=== PATIENT | male | born 1960 | race African-American/Black ===

== ENCOUNTER 2019-03-20 14:22 | Emergency (ER) | payer OTHER ==
--- NOTE | 2019-03-20 14:32 | PDOC ---
Rapid Medical Evaluation Time Seen by Provider: 03/20/19 14:25 Medical Evaluation: Allergies Allergy/AdvReac Type Severity Reaction Status Date / Time No Known Allergies Allergy Verified 08/10/13 09:23 03/20/19 14:26 Pt presents for evaluation for b/l mid back pain. 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 State that his back and chest hurt when he takes a deep breath. Denies fevers, chills, shortness of breath Exam: Lungs CTAB, NAD Orders: EKG Pt to proceed to the ER for further evaluation Discharge Disposition - Diagnosis Back pain - Discharge Dispostion Condition at time of disposition: Stable - Referrals - Patient Instructions - Post Discharge Activity
[2019-03-20 14:34] VITALS: BP 130/70; PULSE 80; TEMP 98.4; BMI 30.7
--- NOTE | 2019-03-20 14:43 | PDOC ---
History of Present Illness - General Chief Complaint: Back Pain Stated Complaint: BACK PAIN Time Seen by Provider: 03/20/19 14:25 History Source: Patient Exam Limitations: No Limitations - History of Present Illness Initial Comments: 03/20/19 14:45 Patient states at work last night was lifting some heavy pails, up this morning with tense tight musculature to his right upper back. Denies any breathing problems, palpitations or shortness of breath. Has no numbness and tingling to hands or feet, has taken no medications for relief of same. 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 Occurred: reports: yesterday Severity: reports: mild, moderate Pain Location: reports: chest Modifying Factors: improves with: None Loss of Consciousness: no loss of consciousness Associated Symptoms (Fall): denies symptoms Past History - Travel Traveled outside of the country in the last 30 days: No Close contact w/someone who was outside of country & ill: No - Past Medical History Allergies/Adverse Reactions: Allergies Allergy/AdvReac Type Severity Reaction Status Date / Time No Known Allergies Allergy Verified 08/10/13 09:23 Home Medications: Ambulatory Orders Atorvastatin Ca [Lipitor] 20 mg PO HS 04/14/13 Cyclobenzaprine HCl 10 mg PO Q8H PRN #14 tablet 03/20/19 Naproxen [Naprosyn -] 500 mg PO BID #30 tablet 03/20/19 COPD: No Hypercholesterolemia: Yes - Immunization History Td Vaccination: Yes Immunization Up to Date: Yes - Suicide/Smoking/Psychosocial Hx Smoking Status: No Smoking History: Former smoker Years of Tobacco Use: 0 Have you smoked in the past 12 months: No Number of Cigarettes Smoked Daily: 0 Cigars Per Day: 0 Information on smoking cessation initiated: No Hx Alcohol Use: No Drug/Substance Use Hx: No Review of Systems - Review of Systems Able to Perform ROS?: Yes Is the patient limited Omani proficient: Yes Constitutional: Yes: Symptoms Reported, See HPI HEENTM: Yes: See HPI. No: Symptoms Reported Respiratory: Yes: See HPI. No: Symptoms reported, Cough, Shortness of Breath ABD/GI: No: Symptoms Reported : No: Symptoms Reported Musculoskeletal: Yes: Symptoms Reported, See HPI, Back Pain, Muscle Pain Integumentary: Yes: See HPI. No: Symptoms Reported All Other Systems: Reviewed and Negative *Physical Exam - Vital Signs Last Vital Signs Temp Pulse Resp BP Pulse Ox 98.4 F 80 16 130/70 98 03/20/19 14:28 03/20/19 14:28 03/20/19 14:28 03/20/19 14:28 03/20/19 14:28 - Physical Exam General Appearance: Yes: Nourished, Appropriately Dressed, Apparent Distress, Mild Distress HEENT: positive: THADDEUS, Normal ENT Inspection, TMs Normal, Pharynx Normal Neck: positive: Supple. negative: Tender Respiratory/Chest: positive: Lungs Clear, Normal Breath Sounds Musculoskeletal: positive: Normal Inspection, Muscle Spasm (tender tight musculature of the upper trapezius right muscle groups. Has full range of motion to arm and shoulder without radiating pain. Has no true bone tenderness crepitus or step-offs). 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 NML intact, Fully Oriented, Alert, Normal Mood/ Affect, Normal Response, Motor Strength 5/5 Progress Note - Progress Note Progress Note: Back strain, will treat with NSAIDs and cyclobenzaprine *DC/Admit/Observation/Transfer Diagnosis at time of Disposition: Back pain Qualifiers: Back pain location: thoracic back pain Chronicity: acute Back pain laterality: right Qualified Code(s): M54.6 - Pain in thoracic spine - Discharge Dispostion Disposition: HOME Condition at time of disposition: Stable Decision to Admit order: No - Referrals - Patient Instructions Printed Discharge Instructions: DI for Back Strain or Sprain Additional Instructions: Rest, no heavy lifting or exercise until pain is resolved Hot soaks to neck and low back as often as possible/hot showers or Jacuzzis No massage or therapy until spasm is gone Continue Naprosyn 500 mg tablet, 1 tablet every 8 hours for the next 3 days then as needed for pain and swelling Cyclobenzaprine 1-10mg every 8 hours as needed for spasm If not significant improvement within 24 hours with medication and rest regime, followup with private physician for change in medications and /or therapy. - Post Discharge Activity Forms/Work/School Notes: Back to Work
== END 2019-03-20 14:55 | disposition home or self-care (01) ==
LOC: JERFT 14:22
DX: S29.012A Strain of muscle and tendon of back wall of thorax, initial encounter (principal); X50.0XXA Overexertion from strenuous movement or load, initial encounter; Y93.89 Activity, other specified; Y92.89 Other specified places as the place of occurrence of the external cause; Y99.8 Other external cause status
CPT/HCPCS: 99282-25

== ENCOUNTER 2019-04-02 19:38 | Emergency (ER) | payer OTHER ==
[2019-04-02 19:44] VITALS: BP 110/63; PULSE 89; TEMP 98.3; BMI 24.7
[2019-04-03 00:29] LABS: URINE APPEARANCE CLEAR; URINE BILIRUBIN NEGATIVE (NEGATIVE); URINE COLOR YELLOW; URINE GLUCOSE (UA) NEGATIVE (NEGATIVE); URINE KETONE TRACE (NEGATIVE); URINE LEUK ESTERASE NEGATIVE (NEGATIVE); URINE NITRITE NEGATIVE (NEGATIVE); URINE PROTEIN TRACE (NEGATIVE)
--- NOTE | 2019-04-03 01:36 | PDOC ---
History of Present Illness - General Chief Complaint: Pain Stated Complaint: GROIN PAIN Time Seen by Provider: 04/03/19 00:07 History Source: Patient Exam Limitations: No Limitations - History of Present Illness Initial Comments: 04/03/19 01:28 58M with a PMH of prostate CA s/p prostatectomy 14 years ago and penile implant who presents to the ER for testicular pain. The patient states that he's had 2- 3 days of an achy pain in his R testicle, nonradating, atraumatic, without discharge, dysuria, fever, chills, nausea, vomiting or abdominal pain. He denies any other symptoms. Past History - Past Medical History Allergies/Adverse Reactions: Allergies Allergy/AdvReac Type Severity Reaction Status Date / Time No Known Allergies Allergy Verified 04/02/19 19:44 Home Medications: Ambulatory Orders Atorvastatin Ca [Lipitor] 20 mg PO HS 04/14/13 Cyclobenzaprine HCl 10 mg PO Q8H PRN #14 tablet 03/20/19 Naproxen [Naprosyn -] 500 mg PO BID #30 tablet 03/20/19 levoFLOXacin [Levaquin -] 500 mg PO DAILY #10 tablet 04/03/19 Cancer: Yes (prostate) COPD: No Hypercholesterolemia: Yes - Immunization History Td Vaccination: Yes Immunization Up to Date: Yes - Suicide/Smoking/Psychosocial Hx Smoking Status: No Smoking History: Never smoked Years of Tobacco Use: 0 Have you smoked in the past 12 months: No Number of Cigarettes Smoked Daily: 0 Cigars Per Day: 0 Hx Alcohol Use: No Drug/Substance Use Hx: No Review of Systems - Review of Systems Able to Perform ROS?: Yes Comments:: 04/03/19 01:32 GENERAL/CONSTITUTIONAL: No fever or chills. No weakness. HEAD, EYES, EARS, NOSE AND THROAT: No change in vision. No ear pain or discharge. No sore throat. CARDIOVASCULAR: No chest pain, palpitations, or lightheadedness. RESPIRATORY: No cough, wheezing, shortness of breath, or hemoptysis. GASTROINTESTINAL: No abdominal pain, nausea, vomiting, diarrhea, or constipation. GENITOURINARY: + for R testicular pain. No dysuria, frequency, hematuria, or change in urination. MUSCULOSKELETAL: No joint or muscle swelling or pain. No neck or back pain. SKIN: No rash or lesions. NEUROLOGIC: No headache, numbness, tingling, focal weakness, loss of consciousness, or change in strength/sensation. Is the patient limited Pashto proficient: No *Physical Exam - Vital Signs Last Vital Signs Temp Pulse Resp BP Pulse Ox 98.3 F 89 18 110/63 99 04/02/19 19:41 04/02/19 19:41 04/02/19 19:41 04/02/19 19:41 04/02/19 19:41 - Physical Exam General Appearance: Yes: Nourished, Appropriately Dressed. No: Apparent Distress HEENT: positive: Normal Voice, Hearing Grossly Normal Male Genitalia: positive: normal genitalia, testicular tenderness (R testicle), epididymus tender. negative: discharge, testicular mass, CVAT, hematuria ED Treatment Course - ADDITIONAL ORDERS Additional order review: Laboratory Results 04/03/19 00:12 Urine Color Yellow Urine Appearance Clear Urine pH 6.0 Ur Specific Hugo 1.039 H Urine Protein Trace Urine Glucose (UA) Negative Urine Ketones Trace H Urine Blood Negative Urine Nitrite Negative Urine Bilirubin Negative Urine Urobilinogen 1.0 Ur Leukocyte Esterase Negative - RADIOLOGY Radiology Studies Ordered: Category Date Time Status SCROTUM AND CONTENTS US [US] Stat Ultrasound 04/03/19 00:12 Taken Medical Decision Making - Medical Decision Making 04/03/19 01:36 58M with a PMH of prostate ca s/p resection who presents to the ER with R testicular pain for 2-3 days. US shows: FINDINGS: Right testicle and epididymis are homogeneous in appearance. There is positive Doppler waveforms to the right testicle. Left testicle and epididymis are also homogeneous in appearance. There is positive Doppler waveforms to the left testicle. No hydroceles. No varicoceles On some of the color views the case can be made that the right testicle and epididymis are slightly hypervascular relative to the left. This could suggest right-sided infection but the differences are somewhat subtle and therefore not certain. UA negative. In light of US and R testicular tenderness, will treat for epididymitis and d/c with urology f/u. *DC/Admit/Observation/Transfer Diagnosis at time of Disposition: Testicle pain - Discharge Dispostion Disposition: HOME Condition at time of disposition: Stable Decision to Admit order: No - Prescriptions Prescriptions: levoFLOXacin [Levaquin -] 500 mg PO DAILY #10 tablet - Referrals Referrals: Yobani Encinas MD [Primary Care Provider] - Rigoberto Peter MD [Staff Physician] - - Patient Instructions Printed Discharge Instructions: DI for Testicular Pain Additional Instructions: Your ER visit is not complete until your follow up with your primary care physician and urologist (Dr. Peter). Please follow up with your primary care physician and urologist in 1-2 days. Please return to the ER if you have any signs or symptoms of chest pain, shortness of breath, uncontrollable fever, chills, nausea, vomiting, numbness, tingling, or weakness in any part of your body, changes in vision, or slurred speech. Please take your medications as prescribed. Please return to the ER if symptoms persist, worsen, or new symptoms arise. - Post Discharge Activity
--- NOTE | 2019-04-03 01:41 | PDOC ---
Documentation entered by Martha Gtz SCRIBE, acting as scribe for Maricarmen Melvin MD. Maricarmen Melvin MD: This documentation has been prepared by the Tresa tinsley Xhesika, SCRIBE, under my direction and personally reviewed by me in its entirety. I confirm that the documentation accurately reflects all work, treatment, procedures, and medical decision making performed by me. Attending Attestation - Resident Resident Name: [email or web address] - ED Attending Attestation I have performed the following: I have examined & evaluated the patient, The case was reviewed & discussed with the resident, I agree w/resident's findings & plan, Exceptions are as noted - HPI HPI: 04/03/19 01:20 The patient is a 58 year old male with a significant medical history of HLD and prostate cancer (14 years ago, implant in scrotum) who presents to the ED with 3 days of R testicular pain. The patient denies any other symptoms or complaints. The patient denies chest pain, shortness of breath, headache and dizziness. Denies fever, chills, nausea, vomit, diarrhea and constipation. Denies dysuria, frequency, urgency and hematuria. Allergies: NKA Social history: Former smoker - Physicial Exam PE: 04/03/19 01:21 GENERAL: Awake, alert, and fully oriented, in no acute distress HEAD: No signs of trauma EYES: PERRLA, EOMI, sclera anicteric, conjunctiva clear ENT: Auricles normal inspection, hearing grossly normal, nares patent, oropharynx clear without exudates. Moist mucosa NECK: Normal ROM, supple, no lymphadenopathy, JVD, or masses LUNGS: Breath sounds equal, clear to auscultation bilaterally. No wheezes, and no crackles HEART: Regular rate and rhythm, normal S1 and S2, no murmurs, rubs or gallops ABDOMEN: Soft, nontender, normoactive bowel sounds. No guarding, no rebound. No masses : No point tenderness. No erythema. No swelling of testicles. EXTREMITIES: Normal range of motion, no edema. No clubbing or cyanosis. No cords, erythema, or tenderness NEUROLOGICAL: Cranial nerves II through XII grossly intact. Normal speech, normal gait SKIN: Warm, Dry, normal turgor, no rashes or lesions noted. - Medical Decision Making 04/03/19 01:40 UA is negative scrotal US no torsion,no hydroceles,no masses plan d/c and follow up w his urologist
== END 2019-04-03 02:26 | disposition home or self-care (01) ==
LOC: JER 19:38
DX: N45.1 Epididymitis (principal); Z85.46 Personal history of malignant neoplasm of prostate; Z90.79 Acquired absence of other genital organ(s); Z96.0 Presence of urogenital implants
CPT/HCPCS: 76870-TC; 81003; 99281-25

== ENCOUNTER 2024-04-05 04:39 | Day surgery (SDC) | payer OTHER ==
[2024-04-03 09:30] VITALS: BMI 23.8
[2024-04-05 10:54] VITALS: BP 102/62; PULSE 70; RESP 15; TEMP 98
== END 2024-04-05 11:00 | disposition home or self-care (01) ==
LOC: JASU-ENDO 04:39
PROVIDERS: ATTEND Internal Medicine Gastroenterology
PROC: 0DJD8ZZ Inspection of Lower Intestinal Tract, Via Natural or Artificial Opening Endoscopic (ICD-10-PCS; principal; 2024-04-05 09:00)
DX: Z12.11 Encounter for screening for malignant neoplasm of colon (principal)

== ENCOUNTER 2024-06-14 04:33 | Day surgery (SDC) | payer OTHER ==
[2024-06-07 10:43] VITALS: BMI 23.6
[2024-06-14 10:37] VITALS: TEMP 98.7
[2024-06-14 10:47] VITALS: RESP 18
[2024-06-14 11:04] VITALS: PULSE 60
[2024-06-14 11:07] VITALS: BP 112/67
== END 2024-06-14 11:16 | disposition home or self-care (01) ==
LOC: JASU-ENDO 04:33
PROVIDERS: ATTEND Internal Medicine Gastroenterology
PROC: 0DB78ZX Excision of Stomach, Pylorus, Via Natural or Artificial Opening Endoscopic, Diagnostic (ICD-10-PCS; 2024-06-14)
PROC: 0DB68ZX Excision of Stomach, Via Natural or Artificial Opening Endoscopic, Diagnostic (ICD-10-PCS; principal; 2024-06-14 10:00)
DX: K44.9 Diaphragmatic hernia without obstruction or gangrene (principal); Z87.19 Personal history of other diseases of the digestive system
CPT/HCPCS: 88305-TC; 88342-TC